=== PATIENT | female | born 1995 | race African-American/Black ===

== ENCOUNTER 2019-05-22 10:14 | Emergency (ER) | payer SELFPAY ==
[~2019-05-22] VITALS: Ht 157.5 cm; Wt 56.8 kg
[2019-05-22 10:27] VITALS: Ht 157.5 cm; Wt 56.8 kg
[2019-05-22] MEDS ORDERED: SLOW RELEASE I160 MG (10:27)
[2019-05-22] MEDS ORDERED: PRENAVITE1 TAB PO (10:28)
[2019-05-22 10:51] LABS: HEMATOCRIT 36.4 % (36.0-48.0); HEMOGLOBIN 12.1 g/dL (12-16); LYMPHOCYTES 22.3 % (15-50); MCH 29.2 pg (26.0-34.0); MCHC 33.2 g/dL (31.0-37.0); MCV 87.9 fL (80.0-100.0); MEAN PLATELET VOLUME 10.5 fL (7.4-10.4); NEUTROPHILS 71.6 % (40-80); PLATELET COUNT 196 10x3/uL (130-400); RBC 4.14 10x6/uL (4.00-5.40); RDW 14.9 % (11.5-14.5); WBC 7.7 10x3/uL (4.8-10.8)
[2019-05-22 11:26] LABS: CALC OSMOLALITY 273 mosm/kg (275-300); CALCIUM 9.1 mg/dL (8.5-10.1); CARBON DIOXIDE 25.7 mmol/L (21.0-32.0); CHLORIDE - SERUM 102 mmol/L (98-107); CREATININE - SERUM 0.6 mg/dL (0.6-1.3); GLUCOSE 88 mg/dL (74-106); POTASSIUM - SERUM 3.4 mmol/L (3.5-5.1); SODIUM 138 mmol/L (136-145); UREA NITROGEN 9 mg/dL (7-18); eGFR NON AFRICAN AMERICAN > 90 mL/min (90-120)
[2019-05-22 11:54] LABS: ALBUMIN 3.7 g/dL (3.4-5.0); ALKALINE PHOSPHATASE 44 U/L (30-120); ALT (SGPT) 11 U/L (10-68); AMYLASE - SERUM 86 U/L (25-115); BILIRUBIN - TOTAL 0.33 mg/dL (0.2-1.3); LIPASE 77 U/L (73-393); PROTEIN - SERUM 7.5 g/dL (6.4-8.2)
[2019-05-22 11:56] LABS: HCG - QUANTITATIVE (MATERNAL) 260886 mIU/mL
[2019-05-22 12:26] LABS: BACTERIA FEW /hpf (NEGATIVE); BILIRUBIN NEGATIVE (NEGATIVE); EPITHELIAL CELLS OCC /hpf (0-5); GLUCOSE NEGATIVE (NEGATIVE); KETONE NEGATIVE (NEGATIVE); NITRITE NEGATIVE (NEGATIVE); RED CELLS - URINE RARE /hpf (0-5); UROBILINOGEN NORMAL (NORMAL); WHITE CELLS - URINE OCC /hpf (NEGATIVE)
[2019-05-22 13:17] VITALS: BP 102/73
== END 2019-05-22 13:19 | disposition home or self-care (01) ==
LOC: D.ER 10:14
PROVIDERS: Family Medicine
DX: O26.891 Other specified pregnancy related conditions, first trimester (principal); Z3A.10 10 weeks gestation of pregnancy; R10.2 Pelvic and perineal pain; R51 Headache